=== PATIENT | male | born 1970 | race African-American/Black ===

== ENCOUNTER → 2021-12-17 | Day surgery (SDC) | payer OTHER ==
[~2021-12-17] VITALS: Ht 180.3 cm; Wt 87.5 kg
[~2021-12-17] MED LIST: ASCO-339 PO; ATROPINE SULFATE 1MG/10ML SYR ONE; CHOL100046 PO; FENTANYL CITRATE/PF 50MCG/ML 2ML VIAL ONE; LACTATED RINGERS 1,000 ML IV SCH; LIDOCAINE HCL 1% 10 MG/ML 10ML VIAL ONE; MAGN400T26 PO; MIDAZOLAM HCL 2 MG/2 ML VIAL ONE; OMEG-118 PO; OMEP40CA20 PO; PHENYLEPHRINE HCL 10 MG/ML 1ML (IV VIAL) IV ONE; PROPOFOL 200MG/20ML VIAL IV ONE; SIMETHICONE 40 MG/0.6 ML 15ML ONE
== END | disposition home or self-care (01) ==
LOC: OR 09:09
PROVIDERS: ATTEND Internal Medicine Gastroenterology
DX: K21.9 Gastro-esophageal reflux disease without esophagitis (principal); K44.9 Diaphragmatic hernia without obstruction or gangrene; K31.89 Other diseases of stomach and duodenum; K22.2 Esophageal obstruction; Z79.899 Other long term (current) drug therapy; Z98.890 Other specified postprocedural states; Z20.822 Contact with and (suspected) exposure to COVID-19
CPT/HCPCS: 43239; 87426; 88305; C9803; J0461; J2250; J2370; J2704; J3010; J3490